=== PATIENT | female | born 1980 | race Caucasian/White ===

== ENCOUNTER → 2021-11-19 08:40 | Outpatient (BNVA) | payer BC, SELFPAY | PROVIDERS: PCP Internal Medicine; Visit Provider Advanced Practice Midwife ==

== ENCOUNTER 2022-01-04 08:29 | Outpatient (REF) | payer BC, SELFPAY ==
--- NOTE | ~2022-01-04 | MM_ITS ---
EXAMINATION: MM SCREENING DIGITAL BREAST TOMOSYNTHESIS, BILATERAL CLINICAL INFORMATION: Screening. Asymptomatic. Age 41, no prior breast imaging. No known family history of breast cancer. The lifetime risk of breast cancer based on the Tyrer-Cuzick Model is 13%. COMPARISON: None (current study represents initial baseline exam). TECHNIQUE: Digital breast tomosynthesis is performed in both the craniocaudal and mediolateral oblique views along with computer-aided detection (CAD). Synthesized 2D images are generated from the tomosynthesis. FINDINGS: There are scattered areas of fibroglandular density (ACR BI-RADS breast composition Category b). There are no significant masses, abnormal calcifications, or other abnormalities. No architectural abnormality. The axilla and skin contours are unremarkable. MM/MM tomosynthesis screening BI IMPRESSION: No mammographic evidence of malignancy. ASSESSMENT: BI-RADS 1: Negative RECOMMENDATION: Routine annual mammography screening. This patient's information was entered into a reminder system with a target due date for their next mammogram.
== END 2022-01-04 08:30 | disposition home or self-care (01) ==
LOC: HO.MAMMO 08:29
PROVIDERS: PCP Internal Medicine; Visit Provider Internal Medicine
DX: Z12.31 Encounter for screening mammogram for malignant neoplasm of breast (principal)
CPT/HCPCS: 77063; 77067

== ENCOUNTER 2022-11-25 09:35 | Outpatient (REF) | payer BC, SELFPAY ==
[2022-11-27 08:34] LABS: HPV mRNA E6/E7 rflx Not Detected (Not Detected)
== END 2022-11-25 09:36 | disposition home or self-care (01) ==
LOC: HO.LNP 09:35
PROVIDERS: PCP Internal Medicine; Visit Provider Advanced Practice Midwife
DX: Z01.419 Encounter for gynecological examination (general) (routine) without abnormal findings (principal); Z11.51 Encounter for screening for human papillomavirus (HPV)
CPT/HCPCS: 87624; 88142

== ENCOUNTER 2023-01-05 09:02 | Outpatient (REF) | payer BC, SELFPAY ==
--- NOTE | ~2023-01-05 | MM_ITS ---
EXAMINATION: MM SCREENING DIGITAL BREAST TOMOSYNTHESIS, BILATERAL CLINICAL INFORMATION: Screening. Asymptomatic. The lifetime risk of breast cancer based on the Tyrer-Cuzick Model is 12%. COMPARISON: Mammography: 01/04/2022, baseline TECHNIQUE: Digital breast tomosynthesis is performed in both the craniocaudal and mediolateral oblique views along with computer-aided detection (CAD). Synthesized 2D images are generated from the tomosynthesis. FINDINGS: There are scattered areas of fibroglandular density (ACR BI-RADS breast composition Category b). There are no significant masses, abnormal calcifications, or other abnormalities. No architectural abnormality or developing density or significant change from prior baseline exam. The axilla and skin contours are unremarkable. MM/MM tomosynthesis screening BI IMPRESSION: No mammographic evidence of malignancy. ASSESSMENT: BI-RADS 1: Negative RECOMMENDATION: Routine annual mammography screening. This patient's information was entered into a reminder system with a target due date for their next mammogram.
== END 2023-01-05 09:03 | disposition home or self-care (01) ==
LOC: HO.MAMMO 09:02
PROVIDERS: Visit Provider Advanced Practice Midwife
DX: Z12.31 Encounter for screening mammogram for malignant neoplasm of breast (principal)
CPT/HCPCS: 77063; 77067

== ENCOUNTER 2024-01-11 08:59 | Outpatient (REF) | payer OTHER, SELFPAY | END 2024-01-11 09:00 | disposition home or self-care (01) | LOC: HO.MAMMO 08:59 | PROVIDERS: PCP Internal Medicine; Visit Provider Internal Medicine | DX: Z12.31 Encounter for screening mammogram for malignant neoplasm of breast (principal) | CPT/HCPCS: 77063; 77067 ==

== ENCOUNTER → 2024-01-11 09:00 | Outpatient (BNV) | payer OTHER, SELFPAY | PROVIDERS: PCP Internal Medicine; Visit Provider Radiology Diagnostic Radiology | DX: Z12.31 Encounter for screening mammogram for malignant neoplasm of breast (principal) | CPT/HCPCS: 77063; 77067 ==

== ENCOUNTER 2024-08-17 13:55 | Outpatient (AMB) | payer OTHER, SELFPAY ==
--- NOTE | 2024-08-17 14:01 | MHC.OFFVIS ---
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 Doing well with no concerns. She tries to eat healthy and stays active with exercise. Regular monthly menses q24-30d, every 3 months or so she will have a heavier cycle. Labs through her PCP she has never been anemic. had a vasectomy. Currently is sexually active. She denies vaginal itching and irritation. STI screening offered; she accepts. Denies family history of breast, ovarian or colon cancer. Last pap smear 2022, negative. Mammogram: 2023. [facility] Medical History Thyroid nodule Migraine with aura Surgical History Previous back surgery Family History Family/Other Breast cancer Social History Alcohol intake: current Alcohol intake frequency: holidays/special occasions only Patient Tobacco Use Status: Never used Tobacco Sexual orientation: Straight/Heterosexual Gender identity: Female Female Reproductive History Menstrual Duration of menses: 3-5 days Date of last menstrual period: 07/30/24 control method: other (Vasectomy) Total pregnancies: 2 Full term: 2 Date of last pap smear: 11/25/22 (negative pap smear, negative hpv) Date of Mammogram: 01/11/24 (bi-rad 1) Review of Systems Const All systems reviewed & are unremarkable except as noted in HPI and below Reports as per HPI Eyes Reports no additional complaints ENT Reports no additional complaints Card Reports no additional complaints Resp Reports no additional complaints GI Reports as per HPI and Reports no additional complaints Reports as per HPI Musc Reports no additional complaints Skin/Breast Reports as per HPI Neuro Reports no additional complaints Psych Reports no additional complaints Endo Reports no additional complaints Brandon/Lymph Reports no additional complaints Aller/Immun Reports no additional complaints Physical Exam Vital Signs: Last Vital Signs BP 112/78 08/17/24 14:09 BMI result Body Mass Index 30.7 Const General: cooperative, healthy appearing, no acute distress, well developed and alert Orientation/consciousness: patient oriented x3 HEENT Head: Yes normal to inspection Eyes General: appearance normal, both eyes and all related structures Neck Neck: Yes normal visual inspection Thyroid: Thyroid normal Chest Chest palpation & inspection: normal inspection of the chest and other (no puckering, dimpling, peau de orange, retraction, discharge, masses) Breast/axilla inspection: normal inspection of the breasts Breast/axilla palpation: normal palpation of the breasts Resp Effort & Inspection: normal respiratory effort GI Inspection: Yes normal to inspection Palpation (GI): Soft to palpation Rectal Exam - Female: deferred General: Yes bladder normal to palpation External Female Exam: normal external appearance and normal appearance of the urethra Speculum Exam - Vagina: normal appearance of the vagina, normal palpation and normal vaginal discharge Speculum Exam - Cervix: normal appearance of the cervix and normal palpation Bimanual exam- vagina & uterus: normal bimanual exam, normal palpation, uterine size normal, bladder normal to palpation, normal palpation and non-tender Bimanual Exam- Adnexa, other: no masses Skin General skin exam: no rashes or lesions noted Rashes: no rashes Neuro General: patient oriented x3 Cognition (Neuro): normal cognition Extrem General: Yes normal to inspection Psych Attitude: cooperative Thought process: Normal thought process present Assessment & Plan Assessment & Plan (1) Encounter for annual routine gynecological examination: Code(s): Z01.419 - Encounter for gynecological examination (general) (routine) without abnormal findings Category: Medical Plan Discussed: Current recommendations for pap smears per ASCCP guidelines. Breast awareness and periodic breast exams. Mammogram yearly. Maintain a healthy lifestyle including a well balanced diet and routine exercise. Monitor menstrual cycles, report any unscheduled bleeding, bleeding episodes <24 days apart or heavy/prolonged menstrual bleeding. Call the office for a follow up for any concerns. Menopause verses perimenopause. Menopause is definitive of 1 year of no menses or 12 months in succession. Report any abnormal uterine bleeding in example prolonged episodes, or short intervals less than 24 days. Patient verbalizes understanding and agrees to the plan of care. She was given opportunity to ask questions and all questions were answered to the best of my ability. 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 This note is constructed using voice recognition software. While every effort has been made to ensure accuracy, physical biochemist errors may have been included. Coding Level of Care Code Est Pt Prev Care 40-64y(46389) Diagnoses Encounter for annual routine gynecological examination Z01.419
[2024-08-17 14:09] VITALS: BP 112/78; BMI 30.7
== END 2024-08-17 14:39 | disposition home or self-care (01) ==
PROVIDERS: PCP Internal Medicine; Visit Provider Advanced Practice Midwife
DX: Z01.419 Encounter for gynecological examination (general) (routine) without abnormal findings (principal)
CPT/HCPCS: 99396

== ENCOUNTER 2025-01-17 09:06 | Outpatient (REF) | payer OTHER, SELFPAY ==
--- OUTSIDE RECORDS SUMMARY | 2025-01-17 09:43 | XMS_ITS | Clinical Summary ---
Author Organization [facility] [employer] Address [address] [place] [address] Phone Care Team Providers Care Real Estate Recruiter Name Role Phone Wiliam Brown MD Primary Care Provider Allergies Active Allergy Reactions Criticality Noted Date Comments Adhesive Tape-Silicones 02/13/2010 Amitriptyline 02/10/2022 Elavil [amitriptyline] fatigue Sulfa (Sulfonamide Antibiotics) 02/13/2010 Other Reaction(s): Rash/Dermatitis Medications famotidine (PEPCID) 40 mg tablet Take 1 Tablet by mouth daily. Active rimegepant (Nurtec) 75 mg dispersible tablet Take 1 Tablet by mouth as needed. Active metoprolol succinate (TOPROL-XL) 25 mg 24 hr tabletIndication s:Palpitations Take 1 tablet (25 mg total) by mouth 1 (one) time each day. 90 tablet 3 12/05/2024 6 Active Active Problems Problem Noted Date Diagnosed Date Palpitations 02/10/2022 Overview (10/01/2024): Last Assessment & Plan: We did discuss her palpitations. Fortunately these have decreased. She is feeling much better now. She did record some of these at home. It looks like she is having an increase in PACs this time versus her PVCs. I have asked her to check some routine blood work to make sure her electrolytes are stable. Her EKG today is unchanged and normal. We did discuss if these worsen what to do. I did give her a prescription for propanolol 10 mg short acting to take on an as-needed basis. If these worsen she will let us know. We did discuss that we could change her to a different beta-symone or consider placing her on an antiarrhythmic if needed. Assessment & Plan (12/05/2024 1:17 PM EST): Patient's had fairly good control with beta-symone given the fact that she has been fairly well-managed with this but when I can change her therapy at this time we will renew weights and continue it. There is been no substantial change in her symptoms patient is been asked to contact us if she has any prolonged episodes of palpitations or if the frequency or duration changes. Have asked her to see if that is cycle with her menstrual cycle because there may be a connection between hormone imbalances then the initiation of arrhythmia.. 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 Recent hospital admission for symptomatic PVCs which lasted longer in duration and felt different than previous experience. The patient continues on her current dose of metoprolol. We will update a 7-day Holter monitor to further evaluate PVC burden. We discussed the possibility of undergoing implantable loop recorder should she continue to experience palpitations that are not captured on her 7-day monitor. We will update a resting and a stress echocardiogram as patient has vague complaints of left-sided chest discomfort. This can happen at rest or with exertion. Patient expresses a significant family history of coronary artery disease. Educated on the importance of limiting caffeine and alcohol intake as this can contribute to increase in palpitations. Nausea 05/23/2012 Migraine headache 02/14/2010 Overview (10/01/2024): Has Aura Encounters Date Type Department Care Team Description 12/05/2024 8:20 AM EST Office Visit [facility] [address] [place] [address] Too Mckinnon MD Palpitations (Primary Dx) from Last 3 Months Immunizations Name Administration Dates Next Due Influenza trivalent, with pr eservative (Fluzone; Afluria) 6mo and older 07/14/2010 Tdap Tetanus diptheria acell ular pertussis (Boostrix; Adacel) 7yo and older 12/11/2012 Surgical History Surgery Date Site/Laterality Comments OTHER SURGICAL HISTORY PROCEDURE: DENIES PREVIOUS SURGERY OTHER SURGICAL HISTORY 03/25/2017 PROCEDURE: [place] ENDOSCOPY UPPER SMALL INTESTINE OTHER SURGICAL HISTORY PROCEDURE: HISTORY OTHER; COMMENT: Microdiscectomy Medical History Medical History Date Comments Lumbar disc disease DX:Lumbar di sc disease; COMMENT: bulging discs (2) Headache(784.0) DX:Headache(784. 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:Cysti c fibrosis carrier Elevated blood pressure reading DX:Elevated blood pressure reading Hx of thyroid nodule DX:Hx of th yroid nodule Lumbar radiculopathy, right DX:L umbar radiculopathy, right Lyme disease DX:Lyme disease Musculoskeletal pain DX:Musculos keletal pain Nausea DX:Nausea Sciatica DX:Sciatica SI (sacroiliac) joint dysfunction DX:SI (sacroiliac) joint dysfunction Symptomatic PVCs DX:Symptomatic PVCs Chest pain DX:Chest pain Family History Medical History Relation Name Comments Diabetes Father pat aunt Heart attack Father Hypertension Father Other: Cardiovascular Disease Father Other: PAD Father smoker Other: Peripheral vascular disease Father Hypertension Maternal Grandfather Other: Heart Attack Maternal Grandfather Diabetes Maternal Grandmother Multiple sclerosis Mother Osteoporosis Mother Other: pulmonary empolism Mother de ceased, postoperative event Alzheimer's disease Paternal Grandmother Dementia Paternal Grandmother Diabetes Sister Hypertension Sister Relation Name Status Comments Father Maternal Grandfather Maternal Grandmother Mother Alive Multiple Sclero sis Paternal Grandmother Sister Social History Tobacco Use Types Packs/Day Years Used Date Smoking Tobacco: Never Passive Smoke Exposure: Past Smokeless Tobacco: Never Tobacco Cessation:Counseling Given: Not Answered Alcohol Use Standard Drinks/Week Comments No 0 (1 standard drink = 0.6 oz pur e alcohol) Comments Unknown Sex and Gender Information Value Date Recorded Sex Assigned at Not on file Legal Sex Female 10:33 AM EST Gender Identity Not on file Sexual Orientation Not on file Obstetrics History Last Filed Vital Signs Vital Sign Reading Time Taken Comments Blood Pressure 122/80 12/05/2024 8:22 AM EST Pulse 85 12/05/2024 8:22 AM EST Temperature - - Respiratory Rate - - Oxygen Saturation 98% 12/05/2024 8:22 AM EST Inhaled Oxygen Concentration - - Weight 88.9 kg (196 lb) 12/05/2024 8:22 AM EST Height 167.6 cm (5' 6 ) 12/05/2024 8:22 AM EST Body Mass Index 31.64 12/05/2024 8:22 AM EST Plan of Treatment Health Maintenance Due Date Last Done Comments Breast Cancer Screening 1981 Hepatitis B Vaccines (1 of 3 - 19+ 3-dose series) 2000 Cervical Cancer Screening: Pap Smear 02/12/2020 02/11/2017, 02/11/2017 Cholesterol Screening (Lipid Panel) 09/13/2022 Depression Screening 09/13/2022 Social Influencers of Health Screening 09/13/2022 COVID-19 Vaccine ( season) 2024 07/15/2023, 06/22/2022, 08/19/2021, Additional history exists DTaP,Tdap,and Td Vaccines (3 - Td or Tdap) 02/22/2033 02/22/2023, 12/11/2012 HIV Screening Completed 02/15/2017 Hepatitis C Screening Completed 02/15/2017 Influenza Vaccine Completed 08/31/2024, , 07/19/2021, Additional history exists HIB Vaccines Aged Out No longer eligi ble based on patient's age to complete this topic HPV Vaccines Aged Out No longer eligi ble based on patient's age to complete this topic Hepatitis A Vaccines Aged Out No long er eligible based on patient's age to complete this topic IPV Vaccines Aged Out No longer eligi ble based on patient's age to complete this topic MMR Vaccines Aged Out No longer eligi ble based on patient's age to complete this topic Meningococcal ACWY Vaccine Aged Out N o longer eligible based on patient's age to complete this topic Meningococcal B Vaccine Aged Out No l onger eligible based on patient's age to complete this topic Pneumococcal Vaccine: Pediatrics (0 to 5 Years) and At-Risk Patients (6 to 64 Years) Aged Out No longer eligible based on patient's age to complete this topic RSV Immunization Patients Under 20 months Aged Out No longer eligible based on patient's age to complete this topic Varicella Vaccines Aged Out No longer eligible based on patient's age to complete this topic Procedures Procedure Name Priority Date/Time Associated Diagnosis Comments ECG 12-LEAD Routine 12/05/2024 8:30 AM EST Palpitations HEPATITIS C SCREENING Routine 02/15/2017 HIV SCREENING Routine 02/15/2017 HPV Routine 02/11/2017 from Last 3 Months or Most Recently Relevant to Health Maintenance Results * ECG 12 lead (12/05/2024 8:30 AM EST) Ventricular Rate ECG 81 BPM GEMUSE Atrial Rate 81 BPM GEMUSE P-R Interval 146 ms GEMUSE QRS Duration 88 ms GEMUSE Q-T Interval 392 ms GEMUSE QTc 455 ms GEMUSE P Wave Preemption 58 degrees GEMUSE R Preemption -39 degrees GEMUSE T Preemption 25 degrees GEMUSE ECG Interpretation Normal sinus rhythm Left axis deviation Abnormal ECG When compared with ECG of 19-SEP-2014 14:47, No significant change was found Confirmed by Anders MCKINNON JAMES ([id number]) on 12/05/2024 12:38:39 PM GEMUSE 12/05/2024 8:30 AM EST 12/05/2024 12:38 PM EST Too Mckinnon MD ECG ORDERABLES Final Result GEMUSE * HIV Screening (02/15/2017) HIV Screening Abstracted Lizz June MD HEALTH MAINTENANCE Final Result * Hepatitis C Screening (02/15/2017) Hepatitis C Screening Abstracted Historical Provider HEALTH MAINTENANCE Final Result * Cervical Cancer Screening: HPV (02/11/2017) [facility] Cervical Cancer Screening: HPV Negative, Abstracted Historical Provider HEALTH MAINTENANCE Final Result from Last 3 Months or Most Recently Relevant to Health Maintenance Insurance [facility] Care Teams Real Estate Recruiter Relationship Specialty Start Date End Date Wiliam Brown MD [address] [place], [place] PCP - General Internal Medicine 02/05/10
== END 2025-01-17 09:07 | disposition home or self-care (01) ==
LOC: HO.MAMMO 09:06
PROVIDERS: PCP Internal Medicine; Visit Provider Internal Medicine
DX: Z12.31 Encounter for screening mammogram for malignant neoplasm of breast (principal)
CPT/HCPCS: 77063; 77067

== ENCOUNTER → 2025-01-17 09:15 | Outpatient (BNV) | payer OTHER, SELFPAY | PROVIDERS: PCP Internal Medicine; Visit Provider Internal Medicine | DX: Z12.31 Encounter for screening mammogram for malignant neoplasm of breast (principal) | CPT/HCPCS: 77063; 77067 ==